=== PATIENT | female | born 1965 | race Caucasian/White ===

== ENCOUNTER 2019-05-15 07:36 | Day surgery (SDC) | payer MEDICAID, SELFPAY ==
[2019-04-19 09:01] VITALS: BMI 29.5
--- NOTE | 2019-04-20 09:54 | HP_ITS ---
Intake Vital Signs 04/19/19 Body Mass Index (BMI) 29.5 04/19/19 Height 5 ft 8 in 04/19/19 Weight: 171 lb 04/19/19 Body Mass Index (BMI) 25.9 04/19/19 Blood Pressure 106/76 04/19/19 Blood Pressure Location Rt brachial 04/19/19 Respiratory Rate 18 04/19/19 Pulse Rate 82 04/19/19 Pulse Source Monitor 04/19/19 Temperature 98.2 F 04/19/19 Pulse Ox 97 04/19/19 Oxygen Delivery Method room air Intake Visit Reasons: C-Scope/EGD Consult Commissioning Engineer Required: No Is patient in pain?: No Allergies Sulfa (Sulfonamide Antibiotics) Allergy (Verified 04/19/19 08:55) Swelling Medications amlodipine 5 mg tablet 5 mg PO DAILY 04/19/19 [History Confirmed 04/19/19] atenolol 50 mg tablet 50 mg PO DAILY 04/19/19 [History Confirmed 04/19/19] atorvastatin 20 mg tablet 20 mg PO DAILY 04/19/19 [History Confirmed 04/19/19] escitalopram 10 mg tablet 10 mg PO DAILY 04/19/19 [History Confirmed 04/19/19] gabapentin 300 mg capsule 300 mg PO DAILY 04/19/19 [History Confirmed 04/19/19] levetiracetam 1,000 mg tablet 1,000 mg PO BID 04/19/19 [History Confirmed 04/19/19] metformin 1,000 mg tablet 1,000 mg PO BID 04/19/19 [History Confirmed 04/19/19] omeprazole 40 mg capsule,delayed release 40 mg PO DAILY 04/19/19 [History Confirmed 04/19/19] rosuvastatin 20 mg tablet 20 mg PO DAILY 04/19/19 [History Confirmed 04/19/19] [facility] Medical History Depression with anxiety (Acute) Diabetes (Acute) Diarrhea (Acute) GERD (gastroesophageal reflux disease) (Acute) Hypertension (Chronic) Surgical History history left shoulder surgery (Acute) Family History Mother Arthritis Osteoporosis Father Diabetes Hypertension High cholesterol Social History (Updated 04/20/19 @ 09:54 by Hermann Powell MD) Smoking Status: Former smoker alcohol intake: never substance use type: does not use HPI HPI HPI: REGIS RANGEL, is a 53 F who presents to the office today for HPI HPI Surgical H&P: Yes HPI: REGIS RANGEL, is a 53 F who presents to the office today for evaluation for both an upper and lower endoscopy. Patient states that when she was started on blood pressure meds in 2013 she started to develop reflux. She has been treating herself with PPIs with good results. She still wakes up with waterbrash symptoms in the morning. There are times when she forgets to take her medications where she really notices reflux symptoms. She has never had an upper endoscopy. She states that she has had a colonoscopy years ago which was negative. She is currently being treated for fibromyalgia with gabapentin and this seems to be relatively effective for her. ROS General General: Yes weight change and fatigue; no appetite, colon cancer, breast cancer or weakness HEENT HEENT: No difficulty swallowing, eye injury, eye surgery, swollen glands or hoarseness Endo Endocrine: Yes diabetes mellitus; no thyroid disease, thyroid cancer, Hair loss, heat intolerance or cold intolerance Skin Skin: Yes rash and changing moles Breast Breast: No left breast lump, right breast lump, nipple discharge, breast pain, abnormal mammogram, abnormal US or breast enlargement Musc Musculoskeletal: No back problems, arthritis, rheumatoid arthritis, gout or joint pain Cardio Cardiovascular: Yes high blood pressure; no murmur, pacemaker, heart disease, atrial fibrillation, heart attack, heart stent, palpitations, shortness of breat with exertion or chest pain Psych Psychiatric: Yes depression and anxiety; no hearing voices Resp Respiratory: No shortness of breath, No sleep apnea, No cough, No COPD, No asthma, No emphysema, No wheezing Gastro Gastrointestinal: Yes abdominal pain, No nausea or vomiting, Yes diarrhea, No constipation, No blood in stool, Yes acid reflux, No hemorrhoids, No ulcers, No gallbladder problem, No black,tarry stools Omid Hematologic: No blood thinners, No blood disorders, No bleeding, No anemia, No blood clots Neuro Neurologic: No system reviewed and no additional complaints, except as docu, No as per HPI, No abnormal walking, No abnormal hearing, No abnormal movements, No abnormal speech, No behavioral changes, No burning sensations, No confusion, No seizure-like activity, No unsteadiness, No dizziness, No localized weakness, No frequent falls, No headache(s), No lack of coordination, No loss of vision, No memory loss, Yes numbness, No other visual disturbances, No radiating pain, No restless legs, No sensory deficit, No fainting, Yes tingling, No tremor(s), No weakness, No other Exam Const General: no acute distress, well developed, well hydrated Orientation: oriented to person, oriented to place, oriented to time [facility] Head: normocephalic, atraumatic Ears: external ears normal Mouth: moist mucous membranes Eyes Sclera: sclerae normal Pupils: normal by confrontation Neck Neck: no lymphadenopathy noted Neck mass: No Thyroid: thyroid normal, symmetrical Chest Chest palpation & inspection: normal inspection of the chest Breast Palpation: No nipple discharge Resp Effort & Inspection: normal respiratory effort Auscultation: clear to auscultation bilaterally Percussion: percussion normal Cardio Rate: regular rate Rhythm: regular rhythm Heart Sounds: no murmurs GI Palpation: soft, no hepatosplenomegaly, no masses, nontender Rectal Exam: other Other: Rectal exam deferred. Extrem General: normal to inspection, no clubbing, cyanosis or edema Assessment & Plan Problems 1. Encounter for screening colonoscopy Z12.11 2. Gastroesophageal reflux disease, esophagitis presence not specified K21.9 Plan I have discussed the above with the patient. I have offered the patient colonoscopy as well as an EGD for evaluation. I have explained the risks/benefits of the procedure and described the procedure. I have discussed the risks with the patient, including but not limited to: infection, bleeding, perforation of the GI tract requiring emergency surgery, inability to complete the procedure, injury to any internal organs, complications of anesthesia, etc. - the patient understands and agrees to proceed. I have answered all the patient's questions to the patient's satisfaction and the patient has no further questions. The patient has been given instructions for the colon cleansing preparation. We will be doing random colon biopsies. Orders Orders: Colonoscopy 04/19/19 EGD 04/19/19 Coding Level of Care Code Off vis,new,level 3 Diagnoses Encounter for screening colonoscopy Z12.11 Gastroesophageal reflux disease, esophagitis presence not specified K21.9 ??Esophagitis presence: esophagitis presence not specified 04/20/19 0954 <Electronically signed by Hermann montes de oca MD> Date _ Hermann Powell MD I have re-examined the patient. There are no clinical changes since date of exam.
[2019-05-15] VITALS (7 sets, daily range): BP systolic 111–133; BP diastolic 63–83; PULSE 65–72; RESP 16; TEMP 36.3–36.4; O2SAT 95–99; BMI 26.0
[2019-05-15 08:26] LABS: Bedside Glucose 133 mg/dL (70-110)
--- NOTE | 2019-05-15 09:06 | OP.ENDO_ITS ---
05/15/2019 Tracee Saldaña [facility] Re : Upper GI endoscopy procedure for Emiliana Mccall [facility] This procedure was performed on Wednesday, May 15, 2019. My impressions and recommendations are as follows: Impressions : - Medium-sized hiatal hernia. No specimens collected. - Normal stomach. Biopsied. - Normal examined duodenum. No specimens collected. Recommendations : - Discharge patient to home. - Resume previous diet. - Continue present medications. - Await pathology results. - Repeat upper endoscopy PRN to assess disease activity. - Return to my office in 1 week. My findings are described in the full procedure note, which is enclosed. If I can be of further assistance, please feel free to contact me at Doctor phone number(s): , Fax: [phone], Work: . Sincerely, MD Hermann Castellon MD 05/15/2019 9:06:21 AM This report has been signed electronically.
--- NOTE | 2019-05-15 09:08 | OP.ENDO_ITS ---
05/15/2019 Tracee Saldaña [facility] Re : Colonoscopy procedure for Emiliana Mccall [facility] This procedure was performed on Wednesday, May 15, 2019. My impressions and recommendations are as follows: Impressions : - Non-bleeding internal hemorrhoids. - The examination was otherwise normal. - No specimens collected. Recommendations : - Discharge patient to home. - Resume previous diet. - Continue present medications. - Repeat colonoscopy in 10 years for screening purposes. - Return to my office in 1 week. My findings are described in the full procedure note, which is enclosed. If I can be of further assistance, please feel free to contact me at Doctor phone number(s): , Fax: [phone], Work: . Sincerely, MD Hermann Castellon MD 05/15/2019 9:08:08 AM This report has been signed electronically.
== END 2019-05-15 09:52 | disposition home or self-care (01) ==
LOC: EN 07:37 → AC 07:38
PROVIDERS: Visit Provider Surgery
PROC: 0DJD8ZZ Inspection of Lower Intestinal Tract, Via Natural or Artificial Opening Endoscopic (ICD-10-PCS; CPT 45378; principal; 2019-05-15 08:40)
DX: Z12.11 Encounter for screening for malignant neoplasm of colon (principal); R12 Heartburn; K64.8 Other hemorrhoids; K44.9 Diaphragmatic hernia without obstruction or gangrene; K21.9 Gastro-esophageal reflux disease without esophagitis; M79.7 Fibromyalgia; E11.9 Type 2 diabetes mellitus without complications; E78.00 Pure hypercholesterolemia, unspecified; I10 Essential (primary) hypertension; F17.200 Nicotine dependence, unspecified, uncomplicated; Z85.42 Personal history of malignant neoplasm of other parts of uterus; Z79.84 Long term (current) use of oral hypoglycemic drugs; Z88.2 Allergy status to sulfonamides
CPT/HCPCS: 43239; 45378; 82962; J7120

== ENCOUNTER → 2019-06-03 13:30 | Outpatient (CLI) | payer MEDICAID, SELFPAY ==
--- NOTE | 2019-06-03 | IMM_PTH ---
PATIENT: REGIS RANGEL LOC: [facility] U#:[id number] AGE/SX: 59/F ROOM: RE06/03/[address]: Dr. Hermann Powell MD : 1965 BED: DIS: SPEC #: [id number] RECD: 06/05/19 12:35 STATUS: GUIDO REQ #: [id number] LOUISE: 06/03/19 00:[address]: Hermann Powell DEPT: IMMUNOHISTOCHEMISTRY RECD BY: Livia Davis ENTERED: 06/05/19 12:36 SP TYPE: IMMUNO OTHR DR: Tracee [facility] Tissues: Skin of buttock, NOS Procedures: CK5-6 (add) MART1 (add) Pankeratin (initial) P40 (add) S-100 (add) PHYSICIAN & INSTITUTION [place] [address] SPECIMEN INFORMATION: Tissue Source: Excision right buttock lesion Clinical Info: Buttock lesion Specimen Number: [id number] #[id number] CPT code: 04720, 24443 x4 METHODOLOGY: Deparaffinized sections of prefer/formalin-fixed tissue or PAP/DQ stained slides are incubated with monoclonal/polyclonal antibodies/oligonucleotide probes. Localization is made via biotin free immunoperoxidase method. Appropriate controls are performed and reacted as expected. Results on target cell population are indicated in the following table: RESULTS: ANTIBODY / CLONE RESULT Block 2 AE1-3 (AE1/AE3/PCK26) negative CK5-6 (D5 & 1684) negative P40 (BC28) negative S-100 (4C4.9) positive MART-1 (A-103) positive These tests were developed and their performance characteristics determined by [facility]. They may not have been cleared or approved by the U.S. Food and Drug Administration. The FDA has determined that such clearance or approval is not necessary. INTERPRETATION: Right buttock lesion, excision: Atypical compound spitzoid tumor. The specimen is sent to [facility] for expert opinion and reviewed by Dr. Muñoz and above diagnosis is rendered. KATARZYNA:andrade 06/14/19
[2019-06-03 08:16] VITALS: BMI 26.0
--- NOTE | 2019-06-03 08:30 | LES_PTH ---
PATIENT: REGIS RANGEL LOC: [facility] U#:[id number] AGE/SX: 59/F ROOM: RE06/03/[address]: Dr. Hermann Powell MD : 1965 BED: DIS: SPEC #: [id number] RECD: 06/03/19 11:03 STATUS: GUIDO WENDY #: [id number] LOUISE: 06/03/19 08:[address]: Hermann Powell DEPT: SURGICAL PATHOLOGY RECD BY: Tere Cortes ENTERED: 06/03/19 13:46 SP TYPE: Lesion OTHR DR: Tracee [facility] Tissues: Skin of buttock, NOS Procedures: Surgery Specimen Level IV HEADER OPERATION: Excision right buttock lesion PRE-OP DIAGNOSIS: buttock lesion L98.9 TISSUE SUBMITTED: Buttock lesion (right) MICROSCOPIC DIAGNOSIS Right buttock lesion, excisional biopsy: Atypical component spitzoid tumor. See Comment. SJ:06/13/19 COMMENT This case was reviewed and diagnosis discussed with Dr. Muñoz ([facility]) on 06/20/19. Immunohistochemistry ([id number]) supports the above diagnosis.. [facility] and reviewed by Dr. Muñoz, and above diagnosis is rendered. The complete report is available in the patient's EMR. The lesion appears to be completely excised and 1 mm from the peripheral resection margin in the plane of sections examined. Clinical correlation and appropriate follow up are necessary. Case has been reviewed in consultation with Dr. Tracey who concurs with the above diagnosis. IDC:AM MICROSCOPIC DESCRIPTION Slides are reviewed. GROSS DESCRIPTION Received in fixative is one container labeled with the patient's name and designated right buttock lesion. The specimen consists of a monge-white skin ellipse measuring 2 x 1 cm and up to 1 cm in thickness. There is a brown, ovoid lesion with slightly irregular margin on the surface measuring 1.2 x 1 cm. The specimen is inked, serially sectioned and submitted entirely in three cassettes. Cassette 1 contains the tips of ellipse. The specimen is submitted after overnight fixation. / KATARZYNA:zara 06/03/19 TC:1 CPT:93533
== END ==
PROVIDERS: Referring Provider Surgery; Visit Provider Surgery
DX: L98.9 Disorder of the skin and subcutaneous tissue, unspecified (principal)
CPT/HCPCS: 88305; 88341; 88342

== ENCOUNTER → 2019-07-16 10:59 | Outpatient (CLI) | payer MEDICAID, SELFPAY ==
--- NOTE | 2019-07-16 | IMM_PTH ---
PATIENT: REGIS RANGEL LOC: [facility] U#:[id number] AGE/SX: 59/F ROOM: RE07/16/[address]: Dr. Hermann Powell MD : 1965 BED: DIS: SPEC #: [id number] RECD: 07/18/19 11:44 STATUS: GUIDO REQ #: [id number] LOUISE: 07/16/19 00:[address]: Hermann Powell DEPT: IMMUNOHISTOCHEMISTRY RECD BY: Livia Davis ENTERED: 07/18/19 11:45 SP TYPE: IMMUNO OTHR DR: Reba Solomon, CARE TRAINER-C [facility] Tissues: Buttock, NOS Procedures: MACRO (add) Vimentin (add) Pankeratin (add) MELAN-A (initial) MELAN-A (add) S-100 (add) PHYSICIAN & INSTITUTION [address] [address] SPECIMEN INFORMATION: Tissue Source: Right buttock tissue Clinical Info: Spitzoid tumor Specimen Number: [id number] #[id number] CPT code: 12608, 75100 x14 METHODOLOGY: Deparaffinized sections of prefer/formalin-fixed tissue or PAP/DQ stained slides are incubated with monoclonal/polyclonal antibodies/oligonucleotide probes. Localization is made via biotin free immunoperoxidase method. Appropriate controls are performed and reacted as expected. Results on target cell population are indicated in the following table: RESULTS: ANTIBODY / CLONE RESULT Block 1 S-100 (4C4.9) negative Melan A (A103) negative Macro (HAM-56) positive Vimentin (V9) positive AE1-3 (AE1/AE3/PCK26) negative Block 2 S-100 (4C4.9) negative Melan A (A103) negative Macro (HAM-56) positive Vimentin (V9) positive AE1-3 (AE1/AE3/PCK26) negative Block 3 S-100 (4C4.9) negative Melan A (A103) negative Macro (HAM-56) positive Vimentin (V9) positive AE1-3 (AE1/AE3/PCK26) negative These tests were developed and their performance characteristics determined by [facility]. They may not have been cleared or approved by the U.S. Food and Drug Administration. The FDA has determined that such clearance or approval is not necessary. The above immunohistochemical/dualISH markers are ordered and reviewed by the pathologist. INTERPRETATION: Right buttock tissue, re-excision: No evidence of melanotic neoplasm. AM:zara 07/19/19
[2019-07-16 07:30] VITALS: BMI 26.0
--- NOTE | 2019-07-16 07:50 | LES_PTH ---
PATIENT: REGIS RANGEL LOC: [facility] U#:[id number] AGE/SX: 59/F ROOM: RE07/16/[address]: Dr. 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 Suture granulomas. Cicatrix. See comment. AM:zara 07/18/19 COMMENT Immunohistochemistry ([id number]) supports the above diagnosis. Reference is made to the patient's previous right buttock lesion, excisional biopsy from 06/13/19 ([id number]) in which an atypical component spitzoid tumor was identified. Case has been reviewed in consultation with Dr. Pelletier who concurs with the above diagnosis. CHIDI:KATARZYNA MICROSCOPIC DESCRIPTION Slides are reviewed. GROSS DESCRIPTION Received in fixative is one container labeled with the patient's name and designated tissue right buttock. The specimen consists of a monge-white skin ellipse with underlying tissue measuring 3 x 0.6 cm and up to 1.5 cm in thickness. A central area of ulceration is noted. The specimen is inked, serially sectioned and submitted entirely in three cassettes. Sections will be submitted after additional fixation. / KATARZYNA:zara 07/16/19 TC:5 [facility]: [id number]
== END ==
PROVIDERS: PCP Nurse Practitioner Family; Referring Provider Surgery; Visit Provider Surgery
DX: L92.8 Other granulomatous disorders of the skin and subcutaneous tissue (principal); L90.5 Scar conditions and fibrosis of skin
CPT/HCPCS: 88305; 88341; 88342

== ENCOUNTER → 2020-12-15 09:07 | Outpatient (CLI) | payer MEDICAID, SELFPAY ==
[2019-07-16 07:30] VITALS: BMI 26.0
[2020-12-15 10:11] LABS: Hemoglobin A1c 9.9 % (3.8-5.6)
[2020-12-15 10:29] LABS: ALB/GLOB Ratio 1.1 RATIO (0.9-2.4); AST(SGOT) 49 U/L (15-37); Alanine Aminotransfer ALT/SGPT 85 U/L (13-56); Albumin, Serum 4.1 g/dL (3.2-5.0); Alkaline Phosphatase 137 U/L (45-117); Anion Gap 7 (5-15); BUN 12 mg/dL (7-18); BUN/Creat Ratio 17.3 RATIO (10-20); Calcium,Total 9.7 mg/dL (8.5-10.1); Chloride 102 mmol/L (98-107); EST Glomerular Filtration Rate 93 mL/min (>60); Est Glom Filt Rate - Afr Amer 113 mL/min (>60); Globulin 3.9 g/dL (2.2-4.2); Glucose 265 mg/dL (74-106); Potassium 3.9 mmol/L (3.5-5.1); Sodium Level 138 mmol/L (136-145)
== END ==
DX: E11.40 Type 2 diabetes mellitus with diabetic neuropathy, unspecified (principal); R94.5 Abnormal results of liver function studies
CPT/HCPCS: 36415; 80053; 83036

== ENCOUNTER → 2020-12-22 09:24 | Outpatient (CLI) | payer MEDICAID, SELFPAY ==
[2019-07-16 07:30] VITALS: BMI 26.0
[2020-12-22 10:40] LABS: Microalbumin,Random Urine 28.2 mg/L (NO RANGE EST.); Microalbumin:Creatinine Ratio 45.3 mg/g CRE (<30 mg/g CRE)
[2020-12-22 11:04] LABS: Cholesterol 196 mg/dL (200); High Density Lipoprotein 31 mg/dL; T4 Free Direct 0.99 ng/dL (0.76-1.46); Thyroid Stim Hormone (TSH) 1.29 uIU/mL (0.358-3.74); Triglycerides 587 mg/dL
[2020-12-24 14:43] LABS: Vitamin D 1,25-Dihydroxy 64.3 pg/mL (19.9-79.3)
== END ==
DX: E11.40 Type 2 diabetes mellitus with diabetic neuropathy, unspecified (principal)
CPT/HCPCS: 36415; 80061; 82043; 82570; 82652; 84439; 84443

== ENCOUNTER → 2021-01-22 09:53 | Outpatient (CLI) | payer MEDICAID, SELFPAY ==
[2019-07-16 07:30] VITALS: BMI 26.0
[2021-01-22 11:02] LABS: AST(SGOT) 21 U/L (15-37); Alanine Aminotransfer ALT/SGPT 44 U/L (13-56)
[2021-01-22 11:30] LABS: Hepatitis B Surface Antigen Non-Reactive (Nonreactive); Hepatitis C Antibody Non-Reactive (Nonreactive)
== END ==
DX: R74.8 Abnormal levels of other serum enzymes (principal)
CPT/HCPCS: 36415; 84450; 84460; 86803; 87340

== ENCOUNTER → 2021-01-29 08:02 | Outpatient (CLI) | payer MEDICAID, SELFPAY ==
[2019-07-16 07:30] VITALS: BMI 26.0
--- NOTE | 2021-01-29 08:05 | US_ITS ---
STUDY: ABDOMINAL ULTRASOUND REASON FOR EXAM: Female, 55 years old. ABN liver ENZYMES TECHNIQUE: Transabdominal ultrasound was performed with real-time and static navarro scale imaging. TECHNICAL QUALITY: Adequate. COMPARISON: None. FINDINGS: Liver: The liver is mildly enlarged and measures 19.8 cm. There is increased echogenicity consistent with fatty infiltration. The bile ducts are within normal limits. There is hepatic color flow. The direction of portal flow is hepatopetal. There is no demonstrated mass lesion. Portal vein measurement: Gallbladder: Normal distended gallbladder. The gallbladder wall measures 2 mm. There is a negative sonographic Newton''s sign. There is no pericholecystic fluid. There are no gallstones. Common Bile Duct (C.B.D.): The common bile duct measures 5 mm. Pancreas: Normal size of the head, body and tail of the pancreas. There is normal echogenicity of the pancreas. There is no demonstrated pancreatic mass or cyst. Spleen: There is splenomegaly. The spleen measures 13.9 cm x 5.5 cm x 5 cm. Right Kidney: Normal size of the right kidney. The right kidney measures 11.4 cm x 5.5 cm x 4.4 cm. Normal renal cortex. The right cortex measures 1.6 cm. There is no demonstrated renal mass or cyst. There is no right hydronephrosis. Left Kidney: Normal size of the left kidney. The left kidney measures 12.5 cm x 6.1 cm x 5.5 cm. Normal renal cortex. The left cortex measures 2.5 cm. There is no demonstrated renal mass or cyst. There is no left hydronephrosis. Aorta: Unremarkable I.V.C.: The IVC is patent. There is no ascites. US/Abdomen Complete IMPRESSION: Mild hepatomegaly and fatty infiltration of the liver. Splenomegaly. Electronically Signed: Trae Weiss MD at 12:49 EDT , Service support ,
== END ==
DX: R74.8 Abnormal levels of other serum enzymes (principal)
CPT/HCPCS: 76700

== ENCOUNTER → 2021-06-22 08:50 | Outpatient (CLI) | payer MEDICAID, SELFPAY ==
[2021-06-22 10:03] LABS: AST(SGOT) 24 U/L (15-37); Alanine Aminotransfer ALT/SGPT 38 U/L (13-56); Cholesterol 162 mg/dL (200); High Density Lipoprotein 49 mg/dL; Triglycerides 275 mg/dL; Very Low Density Lipoprotein 55 mg/dL (5-40)
== END ==
PROVIDERS: Referring Provider Nurse Practitioner Adult Health; Visit Provider Nurse Practitioner Adult Health
DX: E11.40 Type 2 diabetes mellitus with diabetic neuropathy, unspecified (principal); R74.8 Abnormal levels of other serum enzymes; E78.2 Mixed hyperlipidemia
CPT/HCPCS: 36415; 80061; 84450; 84460

== ENCOUNTER → 2021-09-14 11:23 | Outpatient (CLI) | payer MEDICAID, SELFPAY ==
[2021-09-14 12:49] LABS: Anion Gap 7 (5-15); BUN 13 mg/dL (7-18); BUN/Creat Ratio 17.9 RATIO (10-20); Calcium,Total 8.7 mg/dL (8.5-10.1); Chloride 106 mmol/L (98-107); Creatinine, Serum 0.73 mg/dL (0.55-1.02); EST Glomerular Filtration Rate 88 mL/min (>60); Est Glom Filt Rate - Afr Amer 107 mL/min (>60); Glucose 216 mg/dL (74-106); Potassium 3.7 mmol/L (3.5-5.1); Sodium Level 141 mmol/L (136-145)
[2021-09-14 13:08] LABS: Hemoglobin A1c 6.1 % (3.8-5.6)
== END ==
DX: E11.40 Type 2 diabetes mellitus with diabetic neuropathy, unspecified (principal); I10 Essential (primary) hypertension; E78.2 Mixed hyperlipidemia
CPT/HCPCS: 36415; 80048; 83036

== ENCOUNTER 2021-12-28 10:12 | Outpatient (CLI) | payer MEDICAID, SELFPAY ==
--- NOTE | 2021-12-28 10:34 | RAD_ITS ---
INDICATION: SOB EXAMINATION/TECHNIQUE: X-RAY - XR Chest 2 Views COMPARISON: None. FINDINGS: Support devices: None. No focal consolidations, effusions, or sizable pneumothorax. The cardiomediastinal silhouette is within normal limits. No acute findings in the bones or soft tissues. RAD/Chest PA and Lateral IMPRESSION: No acute findings. Electronically Signed: Jai Mercedes, at 16:39 EDT ,
[2021-12-28 11:05] LABS: Absolute Lymphocyte Count 1.68 X10^3/uL (0.83-4.51); Absolute Neutrophil Count 3.8 X10^3/uL (2.0-7.7); Basophil# 0.04 X10^3/uL; Basophil% 0.7 % (0-1); Eosinophil# 0.05 X10^3/uL; Eosinophils% 0.8 % (0-5); Hematocrit 39.7 % (37-47); Hemoglobin 13.4 g/dL (12.0-15.0); Lymphocyte # 1.68 X10^3/ul (0.83-4.51); Lymphocyte % 27.6 % (19-41); Mean Corp Hgb Conc 33.8 g/dL (32-36); Mean Corpuscular Hgb 30.5 pg (27.0-32.0); Mean Corpuscular Volume 90.4 fL (81-99); Mean Platelet Vol. 10.6 fl (6.2-12.0); Monocyte% 8.2 % (0-10); NRBC Flagged by Analyzer 0 % (0-5); Neutrophil # 3.78 X10^3/uL (2.7-7.7); Platelet Count 211 K/mm3 (150-450); RBC Distribution Width CV 13.2 % (11.6-14.6); RBC Distribution Width SD 42.9 fl (35.1-43.9); Red Blood Count 4.39 M/mm3 (4.2-5.4); White Blood Count 6.1 K/mm3 (4.4-11.0)
[2021-12-28 11:46] LABS: BNP,B-Type NATRIURETIC PEPTIDE 87.8 pg/mL (0-100)
[2021-12-28 11:59] LABS: ALB/GLOB Ratio 0.9 RATIO (0.9-2.4); AST(SGOT) 31 U/L (15-37); Alanine Aminotransfer ALT/SGPT 47 U/L (13-56); Albumin, Serum 3.6 g/dL (3.2-5.0); Alkaline Phosphatase 121 U/L (45-117); Anion Gap 5 (5-15); BUN 14 mg/dL (7-18); Calcium,Total 8.6 mg/dL (8.5-10.1); Chloride 104 mmol/L (98-107); Creatinine, Serum 0.74 mg/dL (0.55-1.02); EST Glomerular Filtration Rate 87 mL/min (>60); Est Glom Filt Rate - Afr Amer 105 mL/min (>60); Globulin 3.9 g/dL (2.2-4.2); Glucose 265 mg/dL (74-106); Potassium 3.7 mmol/L (3.5-5.1); Protein, Total 7.5 g/dL (6.4-8.2); Sodium Level 138 mmol/L (136-145)
== END 2021-12-28 23:59 | disposition home or self-care (01) ==
LOC: LAB 10:14
PROVIDERS: Referring Provider Nurse Practitioner Adult Health; Visit Provider Nurse Practitioner Adult Health
DX: R06.02 Shortness of breath (principal); R63.5 Abnormal weight gain
CPT/HCPCS: 36415; 71046; 80053; 83880; 84443; 85025

== ENCOUNTER 2022-01-19 08:30 | Outpatient (CLI) | payer MEDICAID, SELFPAY ==
[2022-01-19 09:21] LABS: Absolute Lymphocyte Count 2.29 X10^3/uL (0.83-4.51); Absolute Neutrophil Count 5.5 X10^3/uL (2.0-7.7); Basophil# 0.04 X10^3/uL; Basophil% 0.5 % (0-1); Eosinophil# 0.06 X10^3/uL; Eosinophils% 0.7 % (0-5); Hematocrit 40.4 % (37-47); Hemoglobin 13.8 g/dL (12.0-15.0); Lymphocyte # 2.29 X10^3/ul (0.83-4.51); Lymphocyte % 26.6 % (19-41); Mean Corp Hgb Conc 34.2 g/dL (32-36); Mean Corpuscular Hgb 30.7 pg (27.0-32.0); Monocyte# 0.67 X10^3/uL; Monocyte% 7.8 % (0-10); NRBC Flagged by Analyzer 0 % (0-5); Neutrophil # 5.53 X10^3/uL (2.7-7.7); Neutrophil % 64.1 % (47-70); Platelet Count 222 K/mm3 (150-450); RBC Distribution Width SD 42.5 fl (35.1-43.9); Red Blood Count 4.49 M/mm3 (4.2-5.4); White Blood Count 8.6 K/mm3 (4.4-11.0)
[2022-01-19 09:48] LABS: BNP,B-Type NATRIURETIC PEPTIDE 34.6 pg/mL (0-100)
[2022-01-19 09:58] LABS: AST(SGOT) 22 U/L (15-37); Alanine Aminotransfer ALT/SGPT 41 U/L (13-56); Albumin, Serum 3.8 g/dL (3.2-5.0); Alkaline Phosphatase 112 U/L (45-117); Anion Gap 7 (5-15); BUN 12 mg/dL (7-18); BUN/Creat Ratio 14.9 RATIO (10-20); Calcium,Total 8.8 mg/dL (8.5-10.1); Chloride 102 mmol/L (98-107); EST Glomerular Filtration Rate 79 mL/min (>60); Est Glom Filt Rate - Afr Amer 95 mL/min (>60); Globulin 3.9 g/dL (2.2-4.2); Glucose 181 mg/dL (74-106); Potassium 3.8 mmol/L (3.5-5.1); Protein, Total 7.7 g/dL (6.4-8.2); Sodium Level 138 mmol/L (136-145); Thyroid Stim Hormone (TSH) 1.76 uIU/mL (0.358-3.74)
== END 2022-01-19 23:59 | disposition home or self-care (01) ==
LOC: LAB 08:31
PROVIDERS: Visit Provider Nurse Practitioner Adult Health
DX: R06.02 Shortness of breath (principal); R63.5 Abnormal weight gain
CPT/HCPCS: 36415; 80053; 83880; 84443; 85025

== ENCOUNTER → 2022-05-06 | Outpatient (CLI) | payer MEDICAID, SELFPAY ==
[2022-05-06 10:11] LABS: Follicle Stimulating Hormone 70.8 mIU/mL; Free T3 2.3 pg/mL (2.18-3.98); Luteinizing Hormone 30.4 mIU/mL; T4 Free Direct 0.92 ng/dL (0.76-1.46); Thyroid Stim Hormone (TSH) 1.29 uIU/mL (0.358-3.74)
[2022-05-08 21:29] LABS: Adrenocorticotropic Hormone 13.7 pg/mL (7.2-63.3); Insulin Like Growth Factor 105 ng/mL (65-216)
== END | disposition home or self-care (01) ==
LOC: LAB 07:58
PROVIDERS: Referring Provider Internal Medicine Endocrinology, Diabetes & Metabolism; Visit Provider Internal Medicine Endocrinology, Diabetes & Metabolism
DX: E23.7 Disorder of pituitary gland, unspecified (principal)
CPT/HCPCS: 36415; 82024; 82533; 83001; 83002; 84146; 84305; 84439; 84443; 84481

== ENCOUNTER → 2022-05-12 | Outpatient (CLI) | payer MEDICAID, SELFPAY ==
--- NOTE | 2022-05-12 14:37 | BD_ITS ---
STUDY: DUAL ENERGY X-RAY ABSORPTIOMETRY / DXA REASON FOR EXAM: Female, 56 years old. Premature menopause TECHNIQUE: Bone Mineral Density (BMD) measurements of lumbar spine and bilateral hips were obtained. COMPARISON: None. FINDINGS: Lumbar Spine (L1-L4): g/cm2 (0.937) / T-score (-1.0) / Z-score (0.1) Findings are suggestive of normal bone density with a low fracture risk. Left Femur Total: g/cm2 (0.890) / T-score (-0.4) / Z-score (0.3) Left Femoral Neck: g/cm2 (0.729) / T-score (-1.1) / Z-score (0.0) Right Femur Total: g/cm2 (0.902) / T-score (-0.3) / Z-score (0.4) Right Femoral Neck: g/cm2 (0.747) / T-score (-0.9) / Z-score (0.2) BD/Dexa Bone Density Study IMPRESSION: The patient is considered osteopenic as outlined below according to World Joon Organization (WHO) criteria with a low fracture risk. Reference Information: The T-score is the number of standard deviations above or below the standard which is normal for young adults at their peak bone mineral density. The World Health Organization (WHO) interprets the T-scores as follows: Above -1 Normal bone density Between -1 and -2.5 Osteopenia Equal to / or below -2.5 Osteoporosis As a practical clinical guideline, osteopenia may be graded as follows: Mild -1 through -1.5 Moderate -1.6 through -2.0 Severe -2.1 through -2.4 The Z-score is the number of standard deviations above or below age-matched controls. A Z-score of less than -1.5 would be considered abnormal. References: 1. NIH Osteoporosis and Related Bone Diseases www osteo.org 2. International Society for Clinical Densitometry www iscd.org 3. National Osteoporosis Foundation www nof.org Electronically Signed: Trae Weiss MD at 12:37 EDT ,
== END | disposition home or self-care (01) ==
LOC: OPBD 14:24
PROVIDERS: Visit Provider Internal Medicine Endocrinology, Diabetes & Metabolism
DX: M85.80 Other specified disorders of bone density and structure, unspecified site (principal); E28.319 Asymptomatic premature menopause
CPT/HCPCS: 77080

== ENCOUNTER → 2022-08-04 | Outpatient (CLI) | payer MEDICAID, SELFPAY ==
--- NOTE | 2022-08-04 11:55 | RAD_ITS ---
HISTORY: PAIN. TECHNIQUE: XR Spine Thoracic 3 Views. COMPARISON: Chest 12/28/2021. FINDINGS: VERTEBRAE: Vertebral body heights maintained. No acute fracture identified. ALIGNMENT: No significant anterior or posterior subluxation. INTERVERTEBRAL DISCS: Mild degenerative changes with osteophytes in the midthoracic spine. SOFT TISSUES: Enlargement of the cardiac silhouette. RAD/Thoracic Spine 3 Views IMPRESSION: No acute fracture or dislocation identified in the thoracic spine. Mild degenerative change. Cardiomegaly. Electronically Signed: Geri Cantu MD at 13:36 EDT ,
== END | disposition home or self-care (01) ==
LOC: RAD 11:50
PROVIDERS: Referring Provider Nurse Practitioner Family; Visit Provider Nurse Practitioner Family
DX: M54.6 Pain in thoracic spine (principal)
CPT/HCPCS: 72072

== ENCOUNTER → 2022-09-05 | Outpatient (CLI) | payer MEDICAID, SELFPAY ==
--- NOTE | 2022-09-05 12:10 | EKG12_ITS ---
Test Reason : CARDIOMEGALY Blood Pressure : / mmHG Vent. Rate : 078 BPM Atrial Rate : 078 BPM P-R Int : 124 ms QRS Dur : 074 ms QT Int : 368 ms P-R-T Axes : 074 078 125 degrees QTc Int : 419 ms Normal sinus rhythm ST & T wave abnormality, consider lateral ischemia Abnormal ECG Confirmed by COREY WADE, BENY ([id number]), website/blog editor PATRICK MERCHANT ([id number]) on 09/06/2022 8:45:48 AM Referred By: KEATON Confirmed By:BENY NICOLE MD
--- NOTE | 2022-09-05 15:30 | ECHOD_ITS ---
Version 2 Reason For Study: CARDIOMEGALY Procedure This was a 2D Doppler, Color Flow transthoracic echocardiogram. Exam performed in department. Left Ventricle Normal LV size. Left ventricular systolic function is normal. The estimated ejection fraction is 55 %. Stage 1 diastolic dysfunction. No regional wall motion abnormalities noted. Right Ventricle Normal RV size. Normal systolic function. Atria Normal left atrium. Normal right atrium. Mitral Valve Normal mitral valve. Tricuspid Valve Normal tricuspid valve. Aortic Valve Trisinus/trileaflet aortic valve. Pulmonic Valve Normal pulmonic valve. Great Vessels Normal aortic root. The pulmonary artery is normal size. Normal inferior vena cava. Pericardium/Pleural No pericardial effusion. MMode/2D Measurements & Calculations Ao root diam: 3.2 cm LAV(MOD-bp): 54.4 ml LVAd ap4: 17.3 cm2 LAV(MOD-bp) Indexed: 26.2 ml/m2 LVLd ap4: 7.7 cm LAV(MOD-sp2): 46.3 ml EDV(MOD-sp4): 33.9 ml LAV(MOD-sp4): 54.1 ml EDV(sp4-el): 33.1 ml LVAs ap4: 10.2 cm2 LVLs ap4: 6.8 cm ESV(MOD-sp4): 15.5 ml ESV(sp4-el): 12.9 ml EF(MOD-sp4): 54.1 % EF(sp4-el): 61.1 % SV(MOD-sp4): 18.3 ml SV(sp4-el): 20.3 ml LA A4 area: 19.1 cm2 LA dimension(2D): 4.6 cm RA A4 area: 8.1 cm2 Time Measurements MV dec time: 0.23 sec Doppler Measurements & Calculations MV E max nael: 69.7 cm/sec Lat Peak E' Nael: 9.0 cm/sec Med Peak E' Nael: 7.1 cm/sec MV A max nael: 82.6 cm/sec E/E' lat: 7.7 E/E' med: 9.8 MV E/A: 0.84 MV V2 max: 83.5 cm/sec MV dec slope: 317.0 cm/sec2 Ao V2 max: 130.4 cm/sec MV max P.8 mmHg Ao max P.8 mmHg MV V2 mean: 56.9 cm/sec Ao V2 mean: 85.1 cm/sec MV mean P.4 mmHg Ao mean P.3 mmHg MV V2 VTI: 25.1 cm Ao V2 VTI: 26.1 cm LV V1 max: 113.4 cm/sec PA V2 max: 88.1 cm/sec LV V1 max P.2 mmHg PA V2 mean: 66.0 cm/sec LV V1 mean P.2 mmHg LV V1 mean: 69.1 cm/sec LV V1 VTI: 17.6 cm ECHO/Echo Complete Interpretation Summary Normal LV size. Left ventricular systolic function is normal. The estimated ejection fraction is 55 %. Stage 1 diastolic dysfunction. Structurally normal valves. Ordering Physician: Johana Gamez Referring Physician: CITLALY MCALLISTER Performed By: Valentina Kim RCS
== END | disposition home or self-care (01) ==
PROVIDERS: Visit Provider Nurse Practitioner Family
DX: I51.7 Cardiomegaly (principal)
CPT/HCPCS: 93005; 93306

== ENCOUNTER → 2022-09-23 | Outpatient (CLI) | payer MEDICAID, SELFPAY ==
[2022-09-23 09:11] LABS: Hematocrit 42.8 % (37-47); Hemoglobin 14.1 g/dL (12.0-15.0); Mean Corp Hgb Conc 32.9 g/dL (32-36); Mean Corpuscular Hgb 30.1 pg (27.0-32.0); Mean Corpuscular Volume 91.3 fL (81-99); Mean Platelet Vol. 11.3 fl (6.2-12.0); Platelet Count 243 K/mm3 (150-450); RBC Distribution Width CV 12.9 % (11.6-14.6); RBC Distribution Width SD 43.1 fl (35.1-43.9); Red Blood Count 4.69 M/mm3 (4.2-5.4); White Blood Count 7.1 K/mm3 (4.4-11.0)
[2022-09-23 09:29] LABS: BNP,B-Type NATRIURETIC PEPTIDE 31.5 pg/mL (0-100)
[2022-09-23 09:33] LABS: ALB/GLOB Ratio 0.9 RATIO (0.9-2.4); AST(SGOT) 19 U/L (15-37); Alanine Aminotransfer ALT/SGPT 36 U/L (13-56); Albumin, Serum 3.7 g/dL (3.2-5.0); Alkaline Phosphatase 133 U/L (45-117); Anion Gap 5 (5-15); BUN 15 mg/dL (7-18); BUN/Creat Ratio 20.1 RATIO (10-20); Calcium,Total 9.3 mg/dL (8.5-10.1); Chloride 103 mmol/L (98-107); Creatinine, Serum 0.75 mg/dL (0.55-1.02); EST Glomerular Filtration Rate 85 mL/min (>60); Est Glom Filt Rate - Afr Amer 103 mL/min (>60); Glucose 203 mg/dL (74-106); Potassium 3.8 mmol/L (3.5-5.1); Protein, Total 7.7 g/dL (6.4-8.2); Sodium Level 138 mmol/L (136-145)
== END | disposition home or self-care (01) ==
LOC: LAB 08:07
PROVIDERS: Visit Provider Nurse Practitioner Family
DX: I51.7 Cardiomegaly (principal)
CPT/HCPCS: 36415; 80053; 83880; 85027

== ENCOUNTER → 2022-10-03 | Outpatient (CLI) | payer MEDICAID, SELFPAY ==
--- NOTE | 2022-10-03 16:17 | STRESSREP ---
Stress Test Report Pharmacologic myocardial perfusion stress test. 57-year-old lady with a history of abnormal EKG Resting EKG demonstrates sinus rhythm with rate of 73 bpm and T wave inversions noted in leads III and aVF V3 through V6. Resting blood pressure is 128/84 mmHg. 0.4 mg of regadenoson was infused per usual protocol followed by rapid intravenous saline flush injection. Continuous EKG monitoring was performed. The maximum heart rate was 93 bpm which was 56% of max impacted heart rate the maximum workload was 1 metabolic equivalent. At rest the T wave inversions noted above were present and at peak infusion nonspecific ST changes were noted with did not meet the criteria for ischemia. Occasional premature ventricular complexes noted. No clinical angina is noted. The final blood pressure was 130/80 mmHg. Myocardial perfusion protocol. 13.1 mCi of technetium 99m sestamibi was injected at rest. 0.4 mg of regadenoson was infused per usual protocol. At peak infusion 39.7 mCi of technetium 99m sestamibi was injected stress images were obtained stress and rest images were reconstructed and compared in the short axis vertical long and horizontal long axis. Gated images were also obtained. Perfusion SPECT analysis: Review of the stress images demonstrate normal uptake of tracer noted in all areas of the myocardium. The resting images similar demonstrated normal uptake of tracer noted in all areas of the myocardium. No areas of reversibility are noted to suggest ischemia and no previous infarct is noted. Gated SPECT analysis: The gated ejection fraction is 68. Conclusion: Normal pharmacologic myocardial perfusion stress test. Preserved ejection fraction.
== END | disposition home or self-care (01) ==
LOC: CVS 05:58
PROVIDERS: Referring Provider Nurse Practitioner Family; Visit Provider Nurse Practitioner Family
DX: R94.31 Abnormal electrocardiogram [ECG] [EKG] (principal); I51.7 Cardiomegaly
CPT/HCPCS: 78452; 93017; A9500; A4216; J2785

== ENCOUNTER → 2023-01-09 | Outpatient (CLI) | payer MEDICAID, SELFPAY ==
[2023-01-09 10:32] LABS: ALB/GLOB Ratio 0.8 RATIO (0.9-2.4); AST(SGOT) 14 U/L (15-37); Alanine Aminotransfer ALT/SGPT 25 U/L (13-56); Albumin, Serum 3.6 g/dL (3.2-5.0); Alkaline Phosphatase 101 U/L (45-117); Anion Gap 5 (5-15); BUN 14 mg/dL (7-18); BUN/Creat Ratio 17.7 RATIO (10-20); Calcium,Total 9.1 mg/dL (8.5-10.1); Chloride 105 mmol/L (98-107); Creatinine, Serum 0.79 mg/dL (0.55-1.02); EST Glomerular Filtration Rate 80 mL/min (>60); Est Glom Filt Rate - Afr Amer 97 mL/min (>60); Globulin 4.3 g/dL (2.2-4.2); Glucose 155 mg/dL (74-106); Protein, Total 7.9 g/dL (6.4-8.2); Sodium Level 137 mmol/L (136-145)
[2023-01-09 10:37] LABS: Hemoglobin A1c 6.4 % (3.8-5.6)
== END | disposition home or self-care (01) ==
LOC: LAB 09:06
DX: E11.9 Type 2 diabetes mellitus without complications (principal)
CPT/HCPCS: 36415; 80053; 83036

== ENCOUNTER → 2023-01-13 | Outpatient (CLI) | payer MEDICAID, SELFPAY ==
--- NOTE | 2023-01-17 18:05 | PFTCOMP_ITS ---
[facility] [place], [place] Date of Study: January 13, 2023 Study Type: Complete pulmonary function testing Indication: COPD, [id number] smoker Referring Provider: Johana Gamez NP Patient: Emiliana Davis : 1965 Spirometry pre- and post bronchodilator showed: 1. Moderate airway obstruction at baseline, which normalized after bronchodilator. The study is not clearly consistent with COPD. 2. Both the obstruction and the change may have been an artifact of variable patient effort, which is supported by flow volume loop morphology. Clinical correlation is recommended. 3. No significant response to bronchodilator. 4. The test met [place] [employer] standards of spirometry. The building services technician indicated patient provided good effort. 5. There was no prior study for comparison 6. If further evaluation of possible reactive airways disease as clinically indicated, methacholine challenge testing is recommended. Lung volumes by plethysmography showed: 1. Normal lung volumes, with no evidence of restriction or hyperinflation. 2. There was no prior study for comparison DLCO by single breath carbon monoxide technique showed: 1. Mildly decreased gas exchange, which normalized when adjusted for lung volumes. 2. There is no prior study for comparison Joshua Bird MD MS FCCP FACP [facility]
== END | disposition home or self-care (01) ==
LOC: PSN 06:37
PROVIDERS: Visit Provider Nurse Practitioner Family
DX: J44.9 Chronic obstructive pulmonary disease, unspecified (principal)
CPT/HCPCS: 94060; 94726; 94729

== ENCOUNTER → 2023-11-09 | Outpatient (CLI) | payer MEDICAID, SELFPAY ==
--- NOTE | 2023-11-09 09:30 | RAD_ITS ---
INDICATION: OSTEOARTHRITIS BILATERAL KNEES EXAMINATION/TECHNIQUE: X-RAY - RIGHT XR Knee Complete 4 Views or More 4 VIEWS COMPARISON: No relevant prior comparison study available FINDINGS: SOFT TISSUES: No soft tissue swelling or gas. No radiopaque foreign body. BONES/JOINTS: No acute fracture or subluxation. Mild degree of high riding patella symmetric with the left side Preservation of the joint space.. No sclerotic or destructive changes observed. RAD/Knee 4 or More Views IMPRESSION: Mild high riding patella. Otherwise unremarkable examination. Electronically Signed: Cb Stanton MD at 10:13 EST ,
--- NOTE | 2023-11-09 09:30 | RAD_ITS ---
INDICATION: OSTEOARTHRITIS BILATERAL KNEES EXAMINATION/TECHNIQUE: X-RAY - LEFT XR Knee Complete 4 Views or More 4 VIEWS COMPARISON: No relevant prior comparison study available FINDINGS: SOFT TISSUES: No soft tissue swelling or gas. No radiopaque foreign body. BONES/JOINTS: No acute fracture or subluxation. Mild degree of high riding patella. Preservation of the joint space.. No sclerotic or destructive changes observed. RAD/Knee 4 or More Views IMPRESSION: Mild high riding patella. Otherwise unremarkable examination. Electronically Signed: Cb Stanton MD at 10:11 [facility] ,
== END | disposition home or self-care (01) ==
LOC: RAD 09:29
PROVIDERS: Referring Provider Clinical Nurse Specialist Adult Health; Visit Provider Clinical Nurse Specialist Adult Health
DX: M17.0 Bilateral primary osteoarthritis of knee (principal)
CPT/HCPCS: 73564

== ENCOUNTER → 2024-04-16 | Outpatient (CLI) | payer MEDICAID, SELFPAY ==
[2024-04-16 11:17] LABS: Absolute Lymphocyte Count 2.16 X10^3/uL (0.83-4.51); Absolute Neutrophil Count 4.7 X10^3/uL (2.0-7.7); Basophil# 0.05 X10^3/uL; Basophil% 0.7 % (0-1); Eosinophil# 0.06 X10^3/uL; Eosinophils% 0.8 % (0-5); Hematocrit 40.4 % (37-47); Hemoglobin 13.2 g/dL (12.0-15.0); Lymphocyte # 2.16 X10^3/ul (0.83-4.51); Lymphocyte % 28.4 % (19-41); Mean Corp Hgb Conc 32.7 g/dL (32-36); Mean Corpuscular Hgb 29.4 pg (27.0-32.0); Mean Platelet Vol. 11.2 fl (6.2-12.0); Monocyte# 0.57 X10^3/uL; Monocyte% 7.5 % (0-10); NRBC Flagged by Analyzer 0 % (0-5); Neutrophil # 4.74 X10^3/uL (2.7-7.7); Neutrophil % 62.3 % (47-70); Platelet Count 230 K/mm3 (150-450); RBC Distribution Width CV 13.1 % (11.6-14.6); Red Blood Count 4.49 M/mm3 (4.2-5.4); White Blood Count 7.6 K/mm3 (4.4-11.0)
[2024-04-16 11:40] LABS: ALB/GLOB Ratio 0.9 RATIO (0.9-2.4); AST(SGOT) 16 U/L (15-37); Alanine Aminotransfer ALT/SGPT 33 U/L (13-56); Albumin, Serum 3.6 g/dL (3.2-5.0); Alkaline Phosphatase 136 U/L (45-117); Anion Gap 5 (5-15); BUN 13 mg/dL (7-18); BUN/Creat Ratio 17.8 RATIO (10-20); Calcium,Total 9.1 mg/dL (8.5-10.1); Chloride 104 mmol/L (98-107); Cholesterol 135 mg/dL (200); Creatinine, Serum 0.73 mg/dL (0.55-1.02); EST Glomerular Filtration Rate 87 mL/min (>60); Est Glom Filt Rate - Afr Amer 106 mL/min (>60); Glucose 169 mg/dL (74-106); High Density Lipoprotein 40 mg/dL; Potassium 3.6 mmol/L (3.5-5.1); Protein, Total 7.6 g/dL (6.4-8.2); Sodium Level 138 mmol/L (136-145); Thyroid Stim Hormone (TSH) 0.84 uIU/mL (0.358-3.74); Triglycerides 283 mg/dL; Very Low Density Lipoprotein 57 mg/dL (5-40)
[2024-04-16 11:43] LABS: Microalbumin,Random Urine 7.4 mg/L (NO RANGE EST.)
[2024-04-18 13:59] LABS: Vitamin D,25 Hydroxy 71.1 ng/mL
== END | disposition home or self-care (01) ==
LOC: VSLAB 09:46
PROVIDERS: PCP Nurse Practitioner Family; Visit Provider Nurse Practitioner Family
DX: E11.9 Type 2 diabetes mellitus without complications (principal); E78.2 Mixed hyperlipidemia; I10 Essential (primary) hypertension; E55.9 Vitamin D deficiency, unspecified
CPT/HCPCS: 36415; 80053; 80061; 82043; 82306; 84443; 85025

== ENCOUNTER → 2024-07-09 | Outpatient (CLI) | payer MEDICAID, SELFPAY ==
[2024-07-09 12:16] LABS: Color, Urine Yellow (Yellow); Glucose, Dipstick Normal (Normal); Ketone-Dipstick Negative (Negative); Leukocyte Esterase-Dipstick 25 /ul (Negative); Nitrite-Dipstick Negative (Negative); Occult Blood-Urine Negative /ul (Negative); Protein-Dipstick Negative (Negative); Urine Bilirubin Dipstick Negative (Negative); Urine Clarity Clear (Clear); Urine Urobilinogen 1 mg/dl (Normal)
== END | disposition home or self-care (01) ==
LOC: LABSPEC 09:01
PROVIDERS: PCP Nurse Practitioner Family; Visit Provider Nurse Practitioner Family
DX: I10 Essential (primary) hypertension (principal); R39.15 Urgency of urination; R30.9 Painful micturition, unspecified
CPT/HCPCS: 81002; 87086

== ENCOUNTER → 2024-10-02 | Outpatient (CLI) | payer MEDICAID, SELFPAY ==
[2024-10-02 12:52] LABS: Absolute Neutrophil Count 4.4 X10^3/uL (2.0-7.7); Basophil# 0.07 X10^3/uL; Basophil% 0.9 % (0-1); Eosinophil# 0.11 X10^3/uL; Eosinophils% 1.4 % (0-5); Hematocrit 42.9 % (37-47); Hemoglobin 14.2 g/dL (12.0-15.0); Lymphocyte % 33.3 % (19-41); Mean Corp Hgb Conc 33.1 g/dL (32-36); Mean Corpuscular Hgb 29.3 pg (27.0-32.0); Mean Corpuscular Volume 88.6 fL (81-99); Mean Platelet Vol. 11.1 fl (6.2-12.0); Monocyte# 0.63 X10^3/uL; Monocyte% 8.1 % (0-10); NRBC Flagged by Analyzer 0 % (0-5); Neutrophil # 4.37 X10^3/uL (2.7-7.7); Neutrophil % 55.9 % (47-70); Platelet Count 228 K/mm3 (150-450); RBC Distribution Width CV 13.2 % (11.6-14.6); RBC Distribution Width SD 42.7 fl (35.1-43.9); Red Blood Count 4.84 M/mm3 (4.2-5.4); White Blood Count 7.8 K/mm3 (4.4-11.0)
[2024-10-02 13:02] LABS: Microalbumin,Random Urine 15.1 mg/L (NO RANGE EST.)
[2024-10-02 13:14] LABS: AST(SGOT) 20 U/L (15-37); Alanine Aminotransfer ALT/SGPT 38 U/L (13-56); Albumin, Serum 3.9 g/dL (3.2-5.0); Alkaline Phosphatase 123 U/L (45-117); Anion Gap 6 (5-15); BUN 14 mg/dL (7-18); BUN/Creat Ratio 18.2 RATIO (10-20); Calcium,Total 9.6 mg/dL (8.5-10.1); Chloride 104 mmol/L (98-107); Cholesterol 127 mg/dL (200); Creatinine, Serum 0.77 mg/dL (0.55-1.02); EST Glomerular Filtration Rate 82 mL/min (>60); Est Glom Filt Rate - Afr Amer 99 mL/min (>60); Globulin 3.9 g/dL (2.2-4.2); Glucose 153 mg/dL (74-106); High Density Lipoprotein 42 mg/dL; Potassium 3.6 mmol/L (3.5-5.1); Protein, Total 7.8 g/dL (6.4-8.2); Sodium Level 137 mmol/L (136-145); Triglycerides 179 mg/dL; Very Low Density Lipoprotein 36 mg/dL (5-40)
[2024-10-03 00:44] LABS: Vitamin D,25 Hydroxy 73.8 ng/mL
== END | disposition home or self-care (01) ==
LOC: VSLAB 11:11
PROVIDERS: PCP Nurse Practitioner Family; Visit Provider Nurse Practitioner Family
DX: I10 Essential (primary) hypertension (principal); E11.9 Type 2 diabetes mellitus without complications; E55.9 Vitamin D deficiency, unspecified; E78.2 Mixed hyperlipidemia
CPT/HCPCS: 36415; 80053; 80061; 82043; 82306; 84443; 85025

== ENCOUNTER → 2025-04-02 | Outpatient (CLI) | payer MEDICAID, SELFPAY ==
[2025-04-02 11:17] LABS: Absolute Lymphocyte Count 1.78 X10^3/uL (0.83-4.51); Absolute Neutrophil Count 5.5 X10^3/uL (2.0-7.7); Basophil# 0.06 X10^3/uL; Basophil% 0.7 % (0-1); Eosinophil# 0.07 X10^3/uL; Eosinophils% 0.9 % (0-5); Hematocrit 41.9 % (37-47); Hemoglobin 14.1 g/dL (12.0-15.0); Lymphocyte # 1.78 X10^3/ul (0.83-4.51); Lymphocyte % 22.2 % (19-41); Mean Corp Hgb Conc 33.7 g/dL (32-36); Mean Corpuscular Hgb 29.7 pg (27.0-32.0); Mean Corpuscular Volume 88.2 fL (81-99); Mean Platelet Vol. 10.6 fl (6.2-12.0); Monocyte# 0.57 X10^3/uL; Monocyte% 7.1 % (0-10); NRBC Flagged by Analyzer 0 % (0-5); Neutrophil # 5.51 X10^3/uL (2.7-7.7); Neutrophil % 68.7 % (47-70); Platelet Count 225 K/mm3 (150-450); RBC Distribution Width SD 42.1 fl (35.1-43.9); Red Blood Count 4.75 M/mm3 (4.2-5.4)
[2025-04-02 11:36] LABS: Microalbumin,Random Urine < 12.0 mg/L (NO RANGE EST.)
[2025-04-02 12:00] LABS: ALB/GLOB Ratio 1.5 RATIO (0.9-2.4); AST(SGOT) 24 U/L (<=31); Alanine Aminotransfer ALT/SGPT 31 U/L (<=34); Albumin, Serum 4.4 g/dL (3.5-5.0); Alkaline Phosphatase 125 U/L (35-104); Anion Gap 13 (5-15); BUN 18 mg/dL (4-19); BUN/Creat Ratio 22.6 RATIO (10-20); Calcium,Total 9.3 mg/dL (7.6-11.0); Carbon Dioxide 22.8 mmol/L (21.0-32.0); Chloride 103 mmol/L (98-108); Cholesterol 177 mg/dL (<=200); Creatinine, Serum 0.79 mg/dL (0.70-1.20); EST Glomerular Filtration Rate 87 (>60); Globulin 2.9 g/dL (2.2-4.2); Glucose 195 mg/dL (70-99); High Density Lipoprotein 37 mg/dL; Low Density Lipoprotein Calc. 59 mg/dL; Potassium 3.7 mmol/L (3.3-5.1); Protein, Total 7.3 g/dL (5.9-8.4); Sodium Level 138 mmol/L (133-145); Triglycerides 403 mg/dL; Very Low Density Lipoprotein 81 mg/dL (5-40); Vitamin D,25 Hydroxy 60.9 ng/mL (30-100); cholesterol:hdl ratio screen 4.73
== END | disposition home or self-care (01) ==
LOC: VSLAB 10:13
PROVIDERS: PCP Nurse Practitioner Family; Visit Provider Nurse Practitioner Family
DX: E11.9 Type 2 diabetes mellitus without complications (principal); I10 Essential (primary) hypertension; E78.2 Mixed hyperlipidemia; E55.9 Vitamin D deficiency, unspecified
CPT/HCPCS: 36415; 80053; 80061; 82043; 82306; 84443; 85025

== ENCOUNTER → 2025-07-02 | Outpatient (CLI) | payer MEDICAID, SELFPAY ==
--- NOTE | 2025-07-02 10:35 | RAD_ITS ---
PROCEDURE: CHEST PA AND LATERAL 07/02/2025 REASON FOR EXAM: COPD W/ ACUTE LOWER RESP INFX TECHNIQUE: Procedure Code: RADCXR Modality: DX Procedure: CHEST PA AND LATERAL COMPARISON: 12/28/2021. Assign report FINDINGS: The heart is normal in size. The lungs are clear. No acute osseous abnormalities. RAD/Chest PA and Lateral IMPRESSION: NO ACUTE FINDINGS. Reading Location: [id number]
[2025-07-02 12:33] LABS: Hematocrit 42.8 % (37-47); Hemoglobin 14.3 g/dL (12.0-15.0); Immature Granulocytes Count 0.060 X10^3/uL (0.0-0.0); Mean Corp Hgb Conc 33.4 g/dL (32-36); Mean Corpuscular Volume 87.9 fL (81-99); Mean Platelet Vol. 11.1 fl (6.2-12.0); NRBC Flagged by Analyzer 0 % (0-5); Platelet Count 247 K/mm3 (150-450); RBC Distribution Width CV 12.4 % (11.6-14.6); RBC Distribution Width SD 39.4 fl (35.1-43.9); Red Blood Count 4.87 M/mm3 (4.2-5.4); White Blood Count 10.7 K/mm3 (4.4-11.0)
[2025-07-02 12:45] LABS: AST(SGOT) 24 U/L (<=31); Alanine Aminotransfer ALT/SGPT 32 U/L (<=34); Albumin, Serum 4.6 g/dL (3.5-5.0); Alkaline Phosphatase 122 U/L (35-104); Amylase 36 U/L (28-100); Anion Gap 14 (5-15); BUN 12 mg/dL (4-19); BUN/Creat Ratio 15.9 RATIO (10-20); Calcium,Total 9.9 mg/dL (7.6-11.0); Carbon Dioxide 23.0 mmol/L (21.0-32.0); Chloride 102 mmol/L (98-108); Globulin 3.4 g/dL (2.2-4.2); Glucose 163 mg/dL (70-99); Lipase 45 U/L (13-75); Potassium 3.6 mmol/L (3.3-5.1)
== END | disposition home or self-care (01) ==
PROVIDERS: PCP Nurse Practitioner Family
DX: E11.9 Type 2 diabetes mellitus without complications (principal); J44.0 Chronic obstructive pulmonary disease with (acute) lower respiratory infection; R10.9 Unspecified abdominal pain
CPT/HCPCS: 36415; 71046; 80053; 82150; 83690; 85025

== ENCOUNTER → 2025-10-02 | Outpatient (CLI) | payer MEDICAID, SELFPAY ==
[2025-10-02 12:33] LABS: Hematocrit 41.2 % (37-47); Hemoglobin 14.0 g/dL (12.0-15.0); Immature Granulocytes Count 0.020 X10^3/uL (0.0-0.0); Mean Corp Hgb Conc 34.0 g/dL (32-36); Mean Corpuscular Volume 86.7 fL (81-99); Mean Platelet Vol. 11.4 fl (6.2-12.0); Microalbumin,Random Urine < 12.0 mg/L (<20 mg/L); NRBC Flagged by Analyzer 0 % (0-5); Platelet Count 225 K/mm3 (150-450); RBC Distribution Width CV 13.0 % (11.6-14.6); RBC Distribution Width SD 41.0 fl (35.1-43.9); Red Blood Count 4.75 M/mm3 (4.2-5.4); White Blood Count 7.3 K/mm3 (4.4-11.0)
[2025-10-02 12:52] LABS: AST(SGOT) 22 U/L (<=31); Alanine Aminotransfer ALT/SGPT 29 U/L (<=34); Albumin, Serum 4.4 g/dL (3.5-5.0); Alkaline Phosphatase 127 U/L (35-104); Anion Gap 12 (5-15); BUN 13 mg/dL (4-19); BUN/Creat Ratio 17.0 RATIO (10-20); Calcium,Total 9.7 mg/dL (7.6-11.0); Carbon Dioxide 24.9 mmol/L (21.0-32.0); Chloride 103 mmol/L (98-108); Cholesterol 148 mg/dL (<=200); Globulin 2.9 g/dL (2.2-4.2); Glucose 191 mg/dL (70-99); Low Density Lipoprotein Calc. 78 mg/dL; Potassium 4.2 mmol/L (3.3-5.1); Triglycerides 207 mg/dL; Very Low Density Lipoprotein 41 mg/dL (5-40); cholesterol:hdl ratio screen 4.23
== END | disposition home or self-care (01) ==
LOC: VSLAB 10:26
PROVIDERS: PCP Nurse Practitioner Family
DX: E78.2 Mixed hyperlipidemia (principal); E11.9 Type 2 diabetes mellitus without complications
CPT/HCPCS: 36415; 80053; 80061; 82043; 84443; 85025